=== PATIENT | male | born 1970 | race Caucasian/White ===

== ENCOUNTER → 2018-02-09 | Emergency (ER) | payer OTHER ==
[~2018-02-09] VITALS: Ht 182.9 cm; Wt 83.9 kg
== END | disposition left against medical advice (07) ==
LOC: ER 14:41
DX: Z53.20 Procedure and treatment not carried out because of patient's decision for unspecified reasons (principal)

== ENCOUNTER 2022-09-28 11:34 | Emergency (ER) | payer OTHER ==
[~2022-09-28] VITALS: Ht 172.7 cm; Wt 99.8 kg
== END 2022-09-28 14:11 | disposition home or self-care (01) ==
LOC: ER 11:34
DX: B02.21 Postherpetic geniculate ganglionitis (principal)